=== PATIENT | female | born 1995 | race Caucasian/White ===

== ENCOUNTER 2017-02-24 16:59 | Emergency (ER) | payer OTHER ==
[~2017-02-24 16:59] MED LIST: ALBUTEROL17 GM INH; AMOXICILLIN PO; BENZONATATE PO; CLARITIN10 MG PO; DICLOFENAC PO; FLEXERIL10 MG PO; FLONASE16 GM; METHADONE PO; NO MEDICATIONS; PREDNISONE PO; VOLTAREN75 MG PO
== END 2017-02-24 17:56 | disposition home or self-care (01) ==
LOC: SED 16:59
DX: J20.9 Acute bronchitis, unspecified (principal); J06.9 Acute upper respiratory infection, unspecified; F17.210 Nicotine dependence, cigarettes, uncomplicated; Z79.899 Other long term (current) drug therapy; Z88.8 Allergy status to other drugs, medicaments and biological substances
CPT/HCPCS: 94640; 99283